=== PATIENT | female | born 1960 | race Caucasian/White ===

== ENCOUNTER 2023-10-14 11:38 | Observation (INO) ==
[2023-10-14] MEDS: Lactated Ringers SEPSIS* BAG 2,060 ML IV ONE (12:22)
[2023-10-14 12:40] LABS: Hematocrit 37.2 % (35-45); Hemoglobin 12.2 g/dL (11.5-14.3); Mean Corpuscular Hemoglobin 28.7 pg (27-33); Mean Corpuscular Hgb Conc 32.9 g/dL (31-36); Mean Platelet Volume 8.8 fL (7.5-11.2); Platelet Count 583 10^3/uL (150-450); Red Blood Count 4.27 10^6/uL (3.63-4.92); Red Cell Distribution Width 16.8 % (12-17); White Blood Count 17.5 10^3/uL (3.8-11.8)
[2023-10-14 12:55] LABS: Activated Partial Thrombo Time 36.2 seconds (26.0-38.0); INR 1.24 (0.85-1.14)
[2023-10-14 13:12] LABS: ABS Basophils 0.1 10^3/uL (0.0-0.1); ABS Lymphocytes 1.3 10^3/uL (1.0-4.8); ABS Monocytes 0.9 10^3/uL (0.0-0.9); ABS Neutrophils 15.2 10^3/uL (1.5-7.6); Eosinophil % 0.1 %; Lymphocyte % 7.4 %
[2023-10-14 13:14] LABS: ALT 100 U/L (7-52); Albumin 3.9 g/dL (3.2-5.2); Albumin/Globulin Ratio 0.9 (1-3); Alkaline Phosphatase 734 U/L (35-149); Anion Gap 18 mmol/L (2-16); Blood Urea Nitrogen 73 mg/dL (6-24); C Reactive Protein 15.54 mg/L (<8.01); CO2 Carbon Dioxide 21 mmol/L (22-32); Calcium 9.3 mg/dL (8.6-10.3); Chloride 88 mmol/L (101-111); Globulin 4.4 g/dL (2-4); Glucose 115 mg/dL (70-100); Sodium 127 mmol/L (135-145); Total Bilirubin 4.2 mg/dL (0.2-1.0); Total Protein 8.3 g/dL (6.4-8.9); eGFR CKD-EPI 15.6 (>60)
[2023-10-14] MEDS: Lactated Ringers 1000 ml BAG 1,000 ML IV ONE (15:55)
[2023-10-14] MEDS: Ondansetron 4 mg VIAL 2 MG/ML 2 ml VIAL IV ONE (15:55)
[2023-10-14] MEDS: Lactated Ringers 1000 ml BAG 1,000 ML IV SCH (18:47)
[2023-10-14] MEDS ORDERED: Ondansetron ODT 4 mg TAB 4 MG TAB SL PRN (18:47)
[2023-10-14] MEDS: ERTAPENEM IVPB SCH (18:47)
[2023-10-14] MEDS: Enoxaparin 30 MG/0.3 ML SYR SUBCUT SCH (18:47)
[2023-10-14] MEDS: NS 0.9% IVPB SCH (18:47)
[2023-10-14] MEDS ORDERED: Ondansetron 4 mg VIAL 2 MG/ML 2 ml VIAL IV PRN (19:11)
[2023-10-14] MEDS: Ondansetron 4 mg VIAL 2 MG/ML 2 ml VIAL IV PRN (20:24)
[2023-10-14 20:30] LABS: Hematocrit 34.4 % (35-45); Hemoglobin 11.9 g/dL (11.5-14.3); Mean Corpuscular Hemoglobin 29.9 pg (27-33); Mean Corpuscular Hgb Conc 34.6 g/dL (31-36); Mean Corpuscular Volume 86.4 fL (80-97); Mean Platelet Volume 8.2 fL (7.5-11.2); Platelet Count 615 10^3/uL (150-450); Red Blood Count 3.98 10^6/uL (3.63-4.92); Red Cell Distribution Width 16.6 % (12-17); White Blood Count 17.3 10^3/uL (3.8-11.8)
[2023-10-14 20:55] LABS: Urine Appearance Turbid; Urine Bilirubin Negative (Negative); Urine Blood Negative (Negative); Urine Color Yellow; Urine Glucose Negative (Negative); Urine Ketones Negative (Negative); Urine Nitrite Negative (Negative); Urine Protein Trace (Negative); Urine Specific Gravity 1.018 (1.002-1.030); Urine Urobilinogen Negative (Negative)
[2023-10-14 21:01] LABS: Albumin 3.6 g/dL (3.2-5.2); Albumin/Globulin Ratio 0.9 (1-3); Calcium 9.3 mg/dL (8.6-10.3); Creatinine, Serum 2.01 mg/dL (0.51-0.95); Globulin 3.9 g/dL (2-4); Potassium 4.4 mmol/L (3.5-5.0); Total Protein 7.5 g/dL (6.4-8.9); eGFR CKD-EPI 27.2 (>60)
[2023-10-14 21:04] LABS: Urine Bacteria Absent /HPF (Absent); Urine Red Blood Cell 1+(3-5/hpf) /HPF (0-Trace); Urine Squamous Epithelial Cell Present /HPF (Absent); Urine White Blood Cell 3+(>20/hpf) /HPF (0-Trace)
[2023-10-14 21:04] LABS: Direct Bilirubin Redraw 0.9 mg/dL (0.1-0.5); Potassium Redraw 4.4 mmol/L (3.5-5.0)
[2023-10-14 21:11] LABS: ABS Basophils 0.2 10^3/uL (0.0-0.1); ABS Eosinophils 0.1 10^3/uL (0.0-0.5); ABS Lymphocytes 2.4 10^3/uL (1.0-4.8); ABS Monocytes 1.6 10^3/uL (0.0-0.9); ABS Neutrophils 13.1 10^3/uL (1.5-7.6); ABS Nucleated RBC 0.01 10^3/ul; Eosinophil % 0.5 %; Nucleated Red Blood Cells % 0.1 %/100WBC (0.0-0.8)
[2023-10-14 21:44] LABS: Urine Osmo 498 mOsm/kg (150-1150)
[2023-10-15] MEDS: Dexamethasone IV 4 MG/ML VIAL 1 ml VIAL IV SLOW PU ONE (00:48)
[2023-10-15 06:14] LABS: ABS Lymphocytes 1.1 10^3/uL (1.0-4.8); ABS Monocytes 0.4 10^3/uL (0.0-0.9); ABS Neutrophils 11.6 10^3/uL (1.5-7.6); Eosinophil % 0.1 %; Hematocrit 34.1 % (35-45); Hemoglobin 11.7 g/dL (11.5-14.3); Lymphocyte % 8.4 %; Mean Corpuscular Hemoglobin 29.4 pg (27-33); Mean Corpuscular Hgb Conc 34.3 g/dL (31-36); Mean Platelet Volume 8.5 fL (7.5-11.2); Platelet Count 587 10^3/uL (150-450); Red Blood Count 3.97 10^6/uL (3.63-4.92); Red Cell Distribution Width 16.1 % (12-17); White Blood Count 13.1 10^3/uL (3.8-11.8)
[2023-10-15 07:56] LABS: Albumin 3.8 g/dL (3.2-5.2); Calcium 9.6 mg/dL (8.6-10.3); Creatinine, Serum 1.64 mg/dL (0.51-0.95); Globulin 3.9 g/dL (2-4); Magnesium 2.9 mg/dL (1.9-2.7); Potassium 5.2 mmol/L (3.5-5.0); Total Bilirubin 4.4 mg/dL (0.2-1.0); Total Protein 7.7 g/dL (6.4-8.9); eGFR CKD-EPI 34.7 (>60)
[2023-10-15 09:57] LABS: C Reactive Protein 12.81 mg/L (<8.01)
[2023-10-15] MEDS: SODIUM ZIRCONIUM CYCLOSILICATE 5 GM PACKET PO ONE (15:18)
[2023-10-15] MEDS: Ertapenem 1 GM in NS 0.9% 50 ML IVPB SCH (16:17)
[2023-10-16 06:17] LABS: ABS Basophils 0.1 10^3/uL (0.0-0.1); ABS Eosinophils 0.1 10^3/uL (0.0-0.5); ABS Lymphocytes 2.2 10^3/uL (1.0-4.8); ABS Monocytes 1.3 10^3/uL (0.0-0.9); ABS Neutrophils 6.4 10^3/uL (1.5-7.6); Eosinophil % 0.9 %; Hematocrit 28.2 % (35-45); Hemoglobin 9.8 g/dL (11.5-14.3); Lymphocyte % 22.3 %; Mean Corpuscular Hemoglobin 30.1 pg (27-33); Mean Corpuscular Hgb Conc 34.7 g/dL (31-36); Mean Corpuscular Volume 86.9 fL (80-97); Mean Platelet Volume 8.2 fL (7.5-11.2); Platelet Count 471 10^3/uL (150-450); Red Blood Count 3.24 10^6/uL (3.63-4.92); Red Cell Distribution Width 16.2 % (12-17); White Blood Count 10.1 10^3/uL (3.8-11.8)
[2023-10-16 06:58] LABS: Albumin 3.3 g/dL (3.2-5.2); Calcium 9.1 mg/dL (8.6-10.3); Creatinine, Serum 1.02 mg/dL (0.51-0.95); Globulin 3.2 g/dL (2-4); Magnesium 2.6 mg/dL (1.9-2.7); Potassium 4.1 mmol/L (3.5-5.0); Total Bilirubin 3.2 mg/dL (0.2-1.0); Total Protein 6.5 g/dL (6.4-8.9); eGFR CKD-EPI 61.4 (>60)
[2023-10-16] MEDS: Lactated Ringers 1000 ml BAG 1,000 ML IV SCH (08:42)
[2023-10-16 10:57] LABS: Hematocrit 28.7 % (35-45); Hemoglobin 9.8 g/dL (11.5-14.3)
[2023-10-16] MEDS ORDERED: Magnesium Hydroxide LIQ 30 ML UDC PO ONE (11:47)
[2023-10-16] MEDS: Polyethylene Glycol 3350 17 GM PACKET PO SCH ×2 (12:10→12:11)
[2023-10-16] MEDS: Senna TAB 8.6 mg TAB PO ONE (12:11)
[2023-10-16 12:32] LABS: Ferritin 435.5 ng/mL (11-307)
[2023-10-16 13:23] VITALS: BP 101/54
== END 2023-10-16 17:20 | disposition home or self-care (01) ==
LOC: ED 11:38 → EDHOLD 11:38 → MED 21:34
PROVIDERS: ADMIT Internal Medicine; ATTEND Internal Medicine